=== PATIENT | male | born 1940 | race Asian ===

== ENCOUNTER → 2018-01-30 | Outpatient (CLI) | payer MEDICARE, OTHER | END | disposition home or self-care (01) | LOC: RADPV 09:58 | PROVIDERS: ATTEND Internal Medicine | DX: R94.31 Abnormal electrocardiogram [ECG] [EKG] (principal) | CPT/HCPCS: 93306 ==

== ENCOUNTER → 2018-02-19 | Outpatient (CLI) | payer MEDICARE, OTHER | END | disposition home or self-care (01) | LOC: RADMN 11:08 | PROVIDERS: ATTEND Internal Medicine | DX: I67.82 Cerebral ischemia (principal); J32.4 Chronic pansinusitis; M79.89 Other specified soft tissue disorders; M76.892 Other specified enthesopathies of left lower limb, excluding foot; M76.891 Other specified enthesopathies of right lower limb, excluding foot; M25.559 Pain in unspecified hip | CPT/HCPCS: 70551; 72170 ==